=== PATIENT | female | born 1945 | race Caucasian/White ===

== ENCOUNTER → 2018-03-27 | Outpatient (CLI) | payer OTHER, BC ==
[~2018-03-27] VITALS: Ht 160 cm; Wt 101.1 kg
[~2018-03-27] MED LIST: ASCORBIC ACID500 M3 PO; CALCIUM 500 MG1 EACH PO; ESSENTIAL WOMA1 EAC1 PO; FOLIC ACID0.8 MG PO; GLUCOSAMINE HC500 MG PO; LATANOPROST2.5 ML BOTH EYES; LO-DOSE ASPIRIN81 M2 PO; LOTENSIN20 MG PO; NEXIUM40 MG PO; NORVASC5 MG PO; OMEGA-31000 M1 PO; PATADAY2.5 ML BOTH EYES; PHENTERMINE H37.5 MG PO; SELENIUM200 MCG PO; SINGULAIR10 MG PO; VENTOLIN HFA18 GM IH; VITAMIN B COMP1 EACH PO; VITAMIN B122500 MCG PO; VITAMIN D2000 UNI1 PO; [UNRECOGNIZED DRUG - OTHER] PO
[2018-03-27 08:27] LABS: CHLORIDE 105 MEQ/L (99-109); CREATININE 0.5 MG/DL (0.6-1.3); GFR ESTIMATE (CALCULATED) > 59 mL/min/; GLUCOSE 115 mg/dL (70-99); SODIUM 140 MEQ/L (136-147); UREA NITROGEN (BUN) 7 mg/dL (9-23)
== END | disposition home or self-care (01) ==
LOC: AMB 02-27 08:00
PROVIDERS: Anesthesiology
DX: Z12.11 Encounter for screening for malignant neoplasm of colon (principal); K22.70 Barrett's esophagus without dysplasia; K44.9 Diaphragmatic hernia without obstruction or gangrene; K21.9 Gastro-esophageal reflux disease without esophagitis; K57.30 Diverticulosis of large intestine without perforation or abscess without bleeding
CPT/HCPCS: 80048; 88305; J3010